=== PATIENT | female | born 1965 | race Caucasian/White ===

== ENCOUNTER → 2017-09-27 | Outpatient (CLI) | payer MEDICAID | LOC: CIMAGING 08:32 | PROVIDERS: ATTEND Family Medicine | DX: R10.31 Right lower quadrant pain (principal); N83.311 Acquired atrophy of right ovary; N83.312 Acquired atrophy of left ovary; Z78.0 Asymptomatic menopausal state | CPT/HCPCS: 76856-PO ==

== ENCOUNTER → 2017-09-28 | Outpatient (CLI) | payer MEDICAID | LOC: CIMAGING 08:25 | PROVIDERS: ATTEND Family Medicine | DX: Z12.31 Encounter for screening mammogram for malignant neoplasm of breast (principal) ==

== ENCOUNTER → 2019-03-01 | Outpatient (CLI) | payer MEDICAID | LOC: CIMAGING 10:40 ==

== ENCOUNTER → 2019-03-04 | Outpatient (CLI) | payer MEDICAID | LOC: CIMAGING 09:16 ==

== ENCOUNTER → 2019-03-19 | Outpatient (CLI) | payer MEDICAID | LOC: EMCIMAGING 12:38 ==